=== PATIENT | female | born 1970 | race Caucasian/White ===

== ENCOUNTER 2018-12-11 11:57 | Emergency (ER) | payer OTHER, SELFPAY ==
[2018-12-11 11:58] VITALS: BP 204/84; PULSE 81; RESP 18; TEMP 36.6; O2SAT 98; BMI 41.5
--- NOTE | 2018-12-11 12:07 | RAD_ITS ---
STUDY: X-RAY CHEST REASON FOR EXAM: Female, 48 years old. History of cough. TECHNIQUE: PA and lateral views of the chest. COMPARISON: None. FINDINGS: EKG electrodes are seen. The lungs are clear and expanded. Scattered calcified granulomas. There is no demonstrated pleural abnormality. Normal size heart. Normal mediastinum and darlene. Normal visualized pulmonary arteries. Normal visualized aortic arch and descending thoracic aorta. Normal visualized thoracic spine. Normal visualized ribs, clavicles, and shoulders. There is no demonstrated abnormality of the visualized soft tissue structures of the upper abdomen. RAD/Chest PA and Lateral IMPRESSION: Normal x-ray examination of the chest. Electronically Signed: Rober Rogers, at 13:28 EDT , Service support ,
--- NOTE | 2018-12-11 12:07 | EKG12_ITS ---
Test Reason : COUGH Blood Pressure : / mmHG Vent. Rate : 080 BPM Atrial Rate : 080 BPM P-R Int : 136 ms QRS Dur : 096 ms QT Int : 390 ms P-R-T Axes : 050 059 031 degrees QTc Int : 449 ms Normal sinus rhythm Possible Left atrial enlargement Incomplete right bundle branch block Nonspecific T-Wave Abnormality Abnormal ECG Confirmed by NAPOLEON LELISON, JAHAIRA ([id number]), development editor NAWAF SINCLAIR ([id number]) on 12/13/2018 1:19:40 PM Referred By: LUKE Confirmed By:JAHAIRA BENDER MD
[2018-12-11 12:28] VITALS: PULSE 77; RESP 18; O2SAT 97
[2018-12-11] MEDS: Albuterol 2.5 MG/3 ML VIAL.NEB. INHALATION ×3 (12:32→12:48)
[2018-12-11] MEDS: Ipratropium/Albuterol Sulfate 3 ML AMPUL.NEB INHALATION (12:32)
[2018-12-11] MEDS: 0.9% Normal Saline 1,000 ML 150 ML IV (12:32)
[2018-12-11 12:35] VITALS: PULSE 90; RESP 19
[2018-12-11 12:40] VITALS: O2SAT 98
--- NOTE | 2018-12-11 13:03 | ED.DCSUM_ITS ---
- ER Visit Summary Date of Service: 12/11/18 Chief Complaint: Cough, shortness of breath History of Present Illness: The patient is a 48 F presents to the emergency department upper respiratory infection. States over the past week, she had a gradual cough. Over the past 2 days is worsened. She states she has been having some stabbing pain when she coughs in her central chest. She is been nauseated. She does not think she had fever but think she may have had chills. Patient is otherwise healthy. She is on no daily medications. She denies orthopnea. She denies weight gain or leg swelling. She has no history of pulmonary embolus. She does not smoke. Physical Examination: Vital signs reviewed General: Well-nourished, well-developed Head: Normocephalic, atraumatic Eyes: Pupils equal and reactive, extraocular muscles intact Neck, supple, no lymphadenopathy Heart: Regular rate and rhythm Respiratory: No distress, scant wheezing Abdomen: Soft, nontender, nondistended, no peritoneal signs Back: Nontender Extremities: Nontender, no edema, no cords Skin: Normal color no rash Neuro: Alert and oriented, no focal or lateralizing deficits Test Results: [] Emergency Department Course and Treatment: Patient presents to the emergency department with cough and shortness of breath. EKG was obtained on patient arrival. There is no acute ischemic change. Cardiac enzymes are normal. She had constant pain for 48 hours. I do not suspect this to be acute coronary syndrome. She is not hypoxic. She is mildly hypertensive on arrival, but without intervention her blood pressure had decreased. I do not feel this represents an acute coronary syndrome or hypertensive emergency. With nebulized breathing treatments, her aeration had improved. Labs are unremarkable. At this time, if the patient is safe for outpatient therapy. I will treat her with oral antibiotics and prednisone. She will be discharged home. Treatment Plan: [] Disposition: Discharge Impression: Acute bronchitis This note was generated with [employer] dictation software. It may contain incorrect words, spelling, and punctuation that were not noted in review of the chart prior to signing ED Disposition - Plan for ED Patient: Instructions: ED Upper Resp Infec Abx Tx Prescriptions: Albuterol Inhaler [Ventolin Hfa] 2 puff INHALATION Q4H PRN PRN #1 inhaler PRN Reason: Wheezing Azithromycin [Zithromax Z-Basil] 250 mg PO UD #1 box Prednisone [Deltasone] 60 mg PO DAILY #15 tab Referrals: Care Physician,No Primary [Primary Care Provider] -
[2018-12-11 13:13] LABS: Absolute Lymphocyte Count 1.98 X10^3/ul (0.83-4.51); Basophil# 0.03 X10^3/uL; Basophil% 0.4 % (0-1); Eosinophil# 0.15 X10^3/uL; Eosinophils% 1.8 % (0-5); Hematocrit 45.3 % (37-47); Lymphocyte # 1.98 X10^3/ul (4.0); Lymphocyte % 24.3 % (19-41); Mean Corp Hgb Conc 33.1 g/gl (32-36); Mean Corpuscular Hgb 29.8 pg (27.0-32.0); Mean Corpuscular Volume 89.9 fL (81-99); Mean Platelet Vol. 8.9 fl (6.2-12.0); Monocyte# 0.93 X10^3/uL; Monocyte% 11.4 % (0-10); Neutrophil # 5.04 X10^3/uL (2.7-7.7); Neutrophil % 61.7 % (47-70); Platelet Count 278 K/mm3 (150-450); RBC Distribution Width CV 13.7 % (11.6-14.6); RBC Distribution Width SD 44.7 fl (35.1-43.9); Red Blood Count 5.04 M/mm3 (4.2-5.4); White Blood Count 8.2 K/mm3 (4.4-11.0)
[2018-12-11 13:15] LABS: POSITIVE COUNT NO; POSITIVE DIFFERENTIAL NO; POSITIVE MORPHOLOGY NO
[2018-12-11 13:36] LABS: Anion Gap 6 (5-15); BUN 7 mg/dL (7-18); BUN/Creat Ratio 10.6 RATIO (10-20); Chloride 105 mmol/L (98-107); Creatinine, Serum 0.66 mg/dL (0.55-1.02); EST Glomerular Filtration Rate 101 mL/min (>60); Est Glom Filt Rate - Afr Amer 122 mL/min (>60); Estimated Creatinine Clearance 77.81 ml/min; Glucose 75 mg/dL (74-106); Potassium 3.4 mmol/L (3.5-5.1); Sodium Level 138 mmol/L (136-145)
[2018-12-11 14:23] VITALS: BP 141/102; PULSE 77; PULSE 93; RESP 16; RESP 20; O2SAT 99
== END 2018-12-11 14:52 | disposition home or self-care (01) ==
LOC: ED 12:54
PROVIDERS: Emergency Provider Emergency Medicine
DX: J20.9 Acute bronchitis, unspecified (principal)
CPT/HCPCS: 71046; 80048; 84484; 85025; 93005; 94640; 96360; 96361; 99285; J7030; A4216

== ENCOUNTER → 2020-03-19 11:28 | Outpatient (CLI) | payer OTHER, SELFPAY | PROVIDERS: Visit Provider Nurse Practitioner Family | DX: Z20.828 Contact with and (suspected) exposure to other viral communicable diseases (principal) | CPT/HCPCS: 87635; G2023; U0003 ==

== ENCOUNTER 2020-06-17 11:24 | Emergency (ER) | payer OTHER, SELFPAY ==
[2020-06-17 11:25] VITALS: BP 182/91; PULSE 71; RESP 16; TEMP 36.8; O2SAT 99; BMI 42.9
--- NOTE | 2020-06-17 11:39 | ED.VIS.GEN ---
History of Present Illness Chief Complaint: Head Injury Informant: Patient Onset: Days Context: Gradual Onset Timing: Intermittent Current Severity: Moderate Maximum Severity: Moderate Narrative: The patient is a 49-year-old female with no significant medical history that presents to the emergency department 2 days after head injury. Patient states that on Tuesday night, she was walking with high heels. She lost her balance and fell onto a gravel driveway. She states she then fell backwards and struck her head against concrete. She had a small amount of bleeding from the area. She did not lose consciousness. She states that yesterday, she did have headache. She states is mostly when she changes position. She states that she had the same symptoms today but also felt like she cannot hear as well out of her right ear. She denies any vomiting. She is not on anticoagulants. She denies any other systemic symptoms. Prior similar symptoms: No Recent Illness/Hospitalization: No Past Medical History - Allergies and Home Meds Allergies/Adverse Reactions: Allergies No Known Allergies Allergy (Verified 06/17/20 11:27) Primary Care Physician: Care Physician,No Primary [Primary Care Provider] - Prior records reviewed: Yes Past Medical History: None Surgical History: no surgical history Smoking Status: Never smoker Review of Systems General: Denies: Chills, Fever, Sweats Eyes: Denies: Visual changes - bilaterally, Diplopia ENT: Denies: Rhinorrhea, Sore throat Cardiovascular: Denies: Chest pain, Palpitations Respiratory: Denies: Dyspnea, Cough, Dyspnea on exertion Gastrointestinal: Reports: Nausea. Denies: Abdominal pain, Vomiting, Diarrhea, Melena, Hematochezia Genitourinary: Denies: Dysuria, Hematuria, Frequency Musculoskeletal: Denies: Back pain, Extremity Pain Skin: Denies: Rash, Wounds Neurological: Reports: Headache. Denies: Weakness, Numbness Physical Exam Vital Signs/Narrative: Vital Signs Temp Pulse Resp BP Pulse Ox 06/17/20 11:25 98.3 F 71 16 182/91 H 99 Inital Vital Signs reviewed: Yes General: Well nourished, Well developed, No Acute Distress Head: Normocephalic, Trauma - Occipital hematoma without step-off or deformity Eyes: Perrl, EOMI ENT: Moist mucous membranes, No rhinorrhea Neck: Supple, Nontender Cardiovascular: Regular rate, Regular rhythm, No murmurs Respiratory: No distress, CTA bilaterally, Chest nontender Abdomen: Soft, Nontender, Nondistended, Normal bowel sounds Back: Nontender, Normal Inspection Extremities: Nontender, No edema Skin: Normal color, No rash Neurological: Alert, Oriented x3, Cranial nerves II-XII grossly intact, Normal Strength, Normal Sensation Psychological: Normal affect, Normal Mood Diagnostic/Tx/Re-eval Clinical Impression(s) from Imaging Studies Brain CT 06/17/20 11:42 IMPRESSION: No Intracranial hemorrhage. Right posterior scalp hematoma. Electronically Signed: Jenniffer Stark MD at 12:15 EDT Tel , Service support , - Medical Decision Making The patient presents with intermittent headache and nausea after fall. She does have hematoma in the posterior scalp. Also appears as if she has cerumen impaction in the right ear. Patient underwent CT of her head. It does demonstrate the scalp hematoma, but no intracranial abnormality. Debrox was placed in her ear and it was irrigated. A large amount of cerumen was able to be extracted. She states that her hearing is now normal. The patient was counseled on concussion, along with reasons to return. At this point, I do feel that she is safe for outpatient therapy. She is comfortable with this plan of care. Impression 1. Concussion 2. Right ear cerumen impaction ED Disposition - Plan for ED Patient: Instructions: ED Concussion Referrals: Care Physician,No Primary [Primary Care Provider] -
--- NOTE | 2020-06-17 11:42 | CT_ITS ---
STUDY: CT BRAIN WITHOUT CONTRAST REASON FOR EXAM: Female, 49 years old. hit head on tuesday. now having nausea and vomiting with dizziness. also loss of hearing in right ear since RADIATION DOSAGE (If Supplied By Facility): CTDIvol = ( 44.99 ) mGy, DLP = ( 745.49 ) mGycm TECHNIQUE: Transaxial CT imaging of the brain was performed without administration of intravenous contrast material. Individualized dose optimization techniques were used for this CT. COMPARISON: No relevant priors. FINDINGS: There is a right posterior scalp swelling and hematoma. Normal calvarium. Normal size ventricles and extra-axial spaces for the patient''s age. Normal white matter tracts of the cerebral hemispheres. Normal basal ganglia and thalami. Normal brainstem. Normal cerebellum. There is no intracranial hemorrhage. There are no findings of an acute ischemic infarction. Normal visualized paranasal sinuses. CT/Brain/Head without Contrast IMPRESSION: No Intracranial hemorrhage. Right posterior scalp hematoma. Electronically Signed: Jenniffer Stark MD at 12:15 EDT Tel , Service support ,
[2020-06-17] MEDS: Carbamide Peroxide 15 ML Bottle 5 DRP OTIC (12:04)
== END 2020-06-17 13:16 | disposition home or self-care (01) ==
PROVIDERS: Emergency Provider Emergency Medicine
DX: S00.03XA Contusion of scalp, initial encounter (principal); W01.0XXA Fall on same level from slipping, tripping and stumbling without subsequent striking against object, initial encounter; Y93.01 Activity, walking, marching and hiking; Y92.093 Driveway of other non-institutional residence as the place of occurrence of the external cause; Y99.9 Unspecified external cause status; H61.21 Impacted cerumen, right ear
CPT/HCPCS: 70450; 99281; 99284

== ENCOUNTER 2020-12-10 10:05 | Outpatient (RCR) | payer OTHER, SELFPAY | END 2021-02-10 23:59 | LOC: IMMUN 10:05 | PROVIDERS: PCP Nurse Practitioner Family; Visit Provider Family Medicine | DX: Z23 Encounter for immunization (principal) | CPT/HCPCS: 0001A; 0002A; 91300 ==

== ENCOUNTER → 2023-02-08 | Outpatient (CLI) | payer SELFPAY ==
[2023-02-11 03:50] LABS: Cotinine Screen Blood <1.0 ng/mL (.); Nicotine Blood <1.0 ng/mL (.)
== END | disposition home or self-care (01) ==
LOC: LABSPEC 09:21
PROVIDERS: PCP Nurse Practitioner Family; Referring Provider Registered Nurse; Visit Provider Registered Nurse
DX: Z00.00 Encounter for general adult medical examination without abnormal findings (principal)
CPT/HCPCS: 80323; G0480